=== PATIENT | male | born 1970 | race Caucasian/White ===

== ENCOUNTER 2019-12-17 07:01 | Inpatient (IN) | payer MEDICAID ==
[~2019-12-17] VITALS: Ht 185.4 cm; Wt 81.8 kg
[2019-12-17 10:55] VITALS: BP 110/72
[2019-12-17] MEDS ORDERED: INFLUENZA VIRUS VACCINE QVS 2020-21 (6MO+)/PF 60 MCG/0.5 ML SYRINGE IM ONE (11:15)
[2019-12-17] MEDS ORDERED: HALOPERIDOL 5 MG TABLET PO PRN (11:30)
[2019-12-17] MEDS ORDERED: LORazepam 2 MG TABLET PO PRN (11:30)
[2019-12-17] MEDS ORDERED: ZOLPIDEM TARTRATE 10 MG TABLET PO PRN (11:30)
[2019-12-17] MEDS ORDERED: POTASSIUM CHLORIDE 10 MEQ ER TABLET PO ONE (14:30)
[2019-12-17 16:09] VITALS: BP 128/78
[2019-12-17] MEDS ORDERED: MAGNESIUM HYDROXIDE SUSPENSION 30 ML UDCUP PO PRN (16:15)
[2019-12-17] MEDS ORDERED: DOCUSATE SODIUM 100 MG CAPSULE PO PRN (16:15)
[2019-12-17] MEDS ORDERED: NICOTINE 14 MG/24 HOUR PATCH TD PRN (16:15)
[2019-12-17] MEDS ORDERED: GuaiFENesin/D-METHORPHAN [SUGAR-FREE] 200-20MG/10 ML SYRUP UDCUP PO PRN (16:15)
[2019-12-17] MEDS ORDERED: ONDANSETRON HCL 4 MG TABLET PO PRN (16:15)
[2019-12-17] MEDS ORDERED: LOPERAMIDE HCL 2 MG CAPSULE PO PRN (16:15)
[2019-12-17] MEDS ORDERED: IBUPROFEN 400 MG TABLET PO PRN (16:15)
[2019-12-17] MEDS ORDERED: CloNIDine HCL 0.1 MG TABLET PO PRN (16:15)
[2019-12-17] MEDS ORDERED: MAG HYDROX/AL HYDROX/SIMETH ES 30 ML SUSPENSION UDCUP PO PRN (16:15)
[2019-12-17] MEDS ORDERED: ACETAMINOPHEN 325 MG TABLET PO PRN (16:15)
[2019-12-17] MEDS ORDERED: ALBUTEROL SULFATE HFA 90 MCG/PUFF 8 GM INHALER IH PRN (16:15)
[2019-12-18 00:58] VITALS: BP 126/72
[2019-12-18 08:02] VITALS: BP 130/68
[2019-12-18] MEDS: ARIPiprazole 10 MG TABLET PO SCH (11:16)
[2019-12-18 16:05] VITALS: BP 124/72
[2019-12-18] MEDS: MELATONIN 5 MG TABLET PO SCH (20:34)
[2019-12-19 04:20] VITALS: BP 124/69
[2019-12-19 08:09] VITALS: BP 138/90
[2019-12-19] MEDS: ARIPiprazole 10 MG TABLET PO SCH (08:42)
[2019-12-19 16:02] VITALS: BP 124/82
[2019-12-19] MEDS: MELATONIN 5 MG TABLET PO SCH (20:32)
[2019-12-20] MEDS ORDERED: ARIP10TA8 PO (05:14)
[2019-12-20] MEDS ORDERED: MELA5TAB3 PO (05:14)
[2019-12-20 06:02] VITALS: BP 131/87
[2019-12-20] MEDS: ARIPiprazole 10 MG TABLET PO SCH (08:08)
[2019-12-20 08:11] VITALS: BP 121/79
== END 2019-12-20 12:00 | disposition home or self-care (01) | DRG 750 ==
LOC: B3A 13:20
DX: F20.0 Paranoid schizophrenia (principal); R45.851 Suicidal ideations; F15.10 Other stimulant abuse, uncomplicated; G93.40 Encephalopathy, unspecified; G44.209 Tension-type headache, unspecified, not intractable; F10.10 Alcohol abuse, uncomplicated; Y90.9 Presence of alcohol in blood, level not specified; Z88.8 Allergy status to other drugs, medicaments and biological substances
CPT/HCPCS: Z7610

== ENCOUNTER 2020-07-18 09:11 | Inpatient (IN) | payer MEDICAID ==
[~2020-07-18] VITALS: Ht 185.4 cm; Wt 83.3 kg
[~2020-07-18 09:11] MED LIST: ARIP10TA38 PO; MELA5TAB3 PO
[2020-07-18] MEDS ORDERED: HALOPERIDOL 5 MG TABLET PO PRN (12:45)
[2020-07-18] MEDS ORDERED: ZOLPIDEM TARTRATE 10 MG TABLET PO PRN (12:45)
[2020-07-18 15:25] VITALS: BP 116/78
[2020-07-19 03:26] VITALS: BP 118/80
[2020-07-19 08:07] VITALS: BP 110/77
[2020-07-19] MEDS: ARIPiprazole 10 MG TABLET PO SCH (09:57)
[2020-07-19] MEDS: LORazepam 2 MG TABLET PO PRN ×2 (09:57→21:12)
[2020-07-19] MEDS ORDERED: ALBUTEROL SULFATE HFA 90 MCG/PUFF 8 GM INHALER IH PRN (11:00)
[2020-07-19] MEDS ORDERED: IBUPROFEN 400 MG TABLET PO PRN (11:00)
[2020-07-19] MEDS ORDERED: LOPERAMIDE HCL 2 MG CAPSULE PO PRN (11:00)
[2020-07-19] MEDS ORDERED: GuaiFENesin/D-METHORPHAN [SUGAR-FREE] 200-20MG/10 ML SYRUP UDCUP PO PRN (11:00)
[2020-07-19] MEDS ORDERED: ONDANSETRON HCL 4 MG TABLET PO PRN (11:00)
[2020-07-19] MEDS ORDERED: ACETAMINOPHEN 325 MG TABLET PO PRN (11:00)
[2020-07-19] MEDS ORDERED: CloNIDine HCL 0.1 MG TABLET PO PRN (11:00)
[2020-07-19] MEDS ORDERED: DOCUSATE SODIUM 100 MG CAPSULE PO PRN (11:00)
[2020-07-19] MEDS ORDERED: NICOTINE 14 MG/24 HOUR PATCH TD PRN (11:00)
[2020-07-19] MEDS ORDERED: MAGNESIUM HYDROXIDE SUSPENSION 30 ML UDCUP PO PRN (11:00)
[2020-07-19] MEDS ORDERED: MAG HYDROX/AL HYDROX/SIMETH ES 30 ML SUSPENSION UDCUP PO PRN (11:00)
[2020-07-19 16:04] VITALS: BP 111/65
[2020-07-19] MEDS: MELATONIN 5 MG TABLET PO SCH (21:12)
[2020-07-20 06:16] VITALS: BP 114/71
[2020-07-20 08:02] VITALS: BP 113/68
[2020-07-20] MEDS: ARIPiprazole 10 MG TABLET PO SCH (08:22)
[2020-07-20 16:05] VITALS: BP 135/83
[2020-07-20] MEDS: MELATONIN 5 MG TABLET PO SCH (20:20)
[2020-07-20] MEDS: LORazepam 2 MG TABLET PO PRN (20:21)
[2020-07-21 04:09] VITALS: BP 121/68
[2020-07-21] MEDS: ARIPiprazole 10 MG TABLET PO SCH (08:01)
[2020-07-21 08:30] VITALS: BP 119/62
[2020-07-21 16:08] VITALS: BP 115/73
[2020-07-21] MEDS: MELATONIN 5 MG TABLET PO SCH (20:19)
[2020-07-22 02:52] VITALS: BP 120/78
[2020-07-22 08:08] VITALS: BP 117/77
[2020-07-22] MEDS: ARIPiprazole 10 MG TABLET PO SCH (08:46)
== END 2020-07-22 13:09 | disposition home or self-care (01) | DRG 750 ==
LOC: B3A 15:20
DX: F25.9 Schizoaffective disorder, unspecified (principal); R45.851 Suicidal ideations; Z59.0 Homelessness; G47.00 Insomnia, unspecified; Z91.410 Personal history of adult physical and sexual abuse
CPT/HCPCS: A9575; Z7610